=== PATIENT | male | born 1950 | race Caucasian/White ===

== ENCOUNTER 2016-10-08 21:12 | Emergency (ER) | payer MEDICARE, BC ==
[2016-10-08] MEDS ORDERED: BENADRYL 50 MG/ML IV ONE (21:29)
[2016-10-08] MEDS ORDERED: Hydromorphone 1 mg/ml Ampule IV ONE (21:29)
[2016-10-08] MEDS ORDERED: Sodium Chloride 0.9% 1000 ML 1,000 ML IV SCH (21:30)
[2016-10-08] MEDS ORDERED: Sodium Chloride 0.9% 1000 ML 1,000 ML ONE (21:32)
[2016-10-08] MEDS ORDERED: BENADRYL 50 MG/ML ONE (21:32)
[2016-10-08] MEDS ORDERED: Hydromorphone 1 mg/ml Ampule ONE (21:32)
--- NOTE | 2016-10-08 21:35 | ERPHSYRPT ---
- History of Present Illness Time Seen by Provider: 10/08/16 21:15 Source: patient Patient Subjective Stated Complaint: patient stasted he began having pain in left side that got so bad he started thorwing up Triage Nursing Assessment: pt alert and oriented x3, ambulates well gait is steady, skin cool, dry, and pale, lung sounds clear pupils perrla 2, left side tender to palpation, bowel souinds present on right side, hypoactive on left side, pulses equal bilateral radius. Physician History: CC: left flank pain Hx: 66 y/o patient of Dr Stephen Jamil. He has remote hx of kidney stone. He had sudden left flank pain starting at 6PM, severe and sharp in nature. Some associated nausea. No fever, chills, hematuria. No chest pain. Timing/Duration: today, constant Severity: severe Associated Symptoms: nausea, abdominal pain (left sided), No vomiting Allergies/Adverse Reactions: acetaminophen [From Vicodin] Allergy (Verified 10/08/16 21:32) hydrocodone [From Vicodin] Allergy (Verified 10/08/16 21:32) meperidine [From Demerol] Allergy (Verified 10/08/16 21:32) Home Medications: Hydrochlorothiazide 12.5 mg PO HS 10/08/16 [History] Lisinopril 10 mg [Zestril 10 MG] 10 mg PO AC 10/08/16 [History] Metoprolol Tartrate 50 mg [Lopressor 50 MG] 50 mg PO BID 10/08/16 [History ] Hx Tetanus, Diphtheria Vaccination/Date Given: No (unknown) Hx Influenza Vaccination/Date Given: No Hx Pneumococcal Vaccination/Date Given: Yes Immunizations Up to Date: No (unknown) - Review of Systems Constitutional: Weakness, No Fever, No Chills Eyes: No Symptoms Ears, Nose, & Throat: No Symptoms Respiratory: No Cough, No Dyspnea Cardiac: No Chest Pain Abdominal/Gastrointestinal: Abdominal Pain, Nausea, No Vomiting, No Diarrhea Genitourinary Symptoms: Flank Pain (left), No Dysuria, No Hematuria Musculoskeletal: Back Pain (left) Skin: No Rash Neurological: No Headache All Other Systems: Reviewed and Negative - Past Medical History Pertinent Past Medical History: Yes Cardiac History: Hypertension History: Other - Past Surgical History Past Surgical History: Yes Gastrointestinal: Hernia Repair Other Surgical History: left knee replacement last fall - Social History Smoking Status: Never smoker Drug Use: none - Nursing Vital Signs Nursing Vital Signs: Initial Vital Signs Temperature 98.7 F 10/08/16 21:13 Pulse Rate 63 10/08/16 21:13 Respiratory Rate 18 10/08/16 21:13 Blood Pressure 185/106 10/08/16 21:13 O2 Sat by Pulse Oximetry 98 10/08/16 21:13 Pain Scale Pain Intensity 0 - Physical Exam General Appearance: alert Eye Exam: PERRL/EOMI Ears, Nose, Throat Exam: normal ENT inspection, moist mucous membranes Neck Exam: normal inspection, non-tender, supple Respiratory Exam: normal breath sounds, lungs clear Cardiovascular Exam: regular rate/rhythm, No pulse deficit Gastrointestinal/Abdomen Exam: soft, tenderness (left), No distention, No mass Male Genitalia Exam: normal genitalia, No hernia, No testicular tenderness Back Exam: normal inspection, CVA tenderness (left) Extremity Exam: normal inspection, normal range of motion Neurologic Exam: alert, oriented x 3, cooperative, sensation nml, No motor deficits Skin Exam: warm, dry, No rash SpO2 Interpretation: normal SpO2: 98 Oxygen Delivery: Room Air - Course Nursing assessment & vital signs reviewed: Yes EKG Interpreted by Me: RATE (60), Sinus Rhythm, NORMAL AXIS, NORMAL INTERVALS ( QTc 440), NORMAL QRS, NORMAL ST-T - CT Exams abd/pelvis CT Interpretation: Tele-radiologist Report (prox ureteral stone, enlarged prostate) Ordered Tests: Active Orders 24 hr Category Date Time Status Clean Catch Urine Specimen STAT Care 10/08/16 21:29 Active EKG-ER Only STAT Care 10/08/16 21:29 Active IV Insertion STAT Care 10/08/16 21:29 Active ABDOMEN AND PELVIS W/0 CONTRAS [CT] Stat Exams 10/08/16 21:29 Taken CBC W DIFF Stat Lab 10/08/16 21:37 Completed CMP Stat Lab 10/08/16 21:37 Completed CULTURE,URINE Stat Lab 10/08/16 21:37 Received Lactic Acid Stat Lab 10/08/16 21:40 Completed UA W/ MICROSCOPIC Stat Lab 10/08/16 21:37 Completed Medication Summary Generic Name Dose Route Start Last Admin Trade Name Freq PRN Reason Stop Dose Admin Sodium Chloride 1,000 mls @ 100 mls/hr 10/08/16 21:30 10/08/16 21:35 Sodium Chloride 0.9% 1000 Ml IV 11/07/16 21:29 100 mls/hr .Q10H MIGUEL Administration Tramadol HCl 50 mg 10/08/16 22:40 Ultram 50 Mg PO 10/08/16 22:41 STAT ONE Discontinued Medications Generic Name Dose Route Start Last Admin Trade Name Julis PRN Reason Stop Dose Admin Diphenhydramine HCl 25 mg 10/08/16 21:29 10/08/16 21:35 Benadryl 50 Mg/Ml IV 10/08/16 21:30 25 mg STAT ONE Administration Diphenhydramine HCl Confirm 10/08/16 21:32 Benadryl 50 Mg/Ml Administered 10/08/16 21:33 Dose 50 mg .ROUTE .STK-MED ONE Hydromorphone HCl 1 mg 10/08/16 21:29 10/08/16 21:34 Hydromorphone 1 Mg/Ml Ampule IV 10/08/16 21:30 1 mg STAT ONE Administration Hydromorphone HCl Confirm 10/08/16 21:32 Hydromorphone 1 Mg/Ml Ampule Administered 10/08/16 21:33 Dose 1 mg .ROUTE .STK-MED ONE Lab/Rad Data: Laboratory Result Diagrams 10/08/16 21:37 10/08/16 21:37 Laboratory Results 10/08/16 10/08/16 10/08/16 Range/Units 21:40 21:37 21:37 WBC 10.9 H (4.0-10.5) K/mm3 RBC 4.72 (4.1-5.6) M/mm3 Hgb 14.4 (12.5-18.0) gm/dl Hct 43.1 (42-50) % MCV 91.3 (78-100) fl MCH 30.5 (26-32) pg MCHC 33.4 (32-36) g/dl RDW 13.8 (11.5-14.0) % Plt Count 179 (150-450) K/mm3 MPV 9.4 (6-9.5) fl Gran % 67.6 H (36.0-66.0) % Lymphocytes % 22.6 L (24.0-44.0) % Monocytes % 8.2 (0.0-12.0) % Eosinophils % 1.2 (0.00-5.0) % Basophils % 0.4 (0.0-0.4) % Basophils # 0.04 (0-0.4) Sodium 144 (136-145) mEq/L Potassium 3.7 (3.5-5.1) mEq/L Chloride 105 (98-107) mEq/L Carbon Dioxide 29.4 (21-32) mEq/L Anion Gap 13.0 (5-15) MEQ/L BUN 15 (9-20) mg/dL Creatinine 1.27 (0.55-1.30) mg/dl Estimated GFR > 60 ML/MIN Glucose 124 H (70-110) MG/DL Lactic Acid 1.6 (0.4-2.0) Calcium 8.8 (8.5-10.1) mg/dL Total Bilirubin 0.50 (0.2-1.0) mg/dL AST 29 (15-37) U/L ALT 36 (12-78) U/L Alkaline Phosphatase 84 (46-116) U/L Serum Total Protein 7.7 (6.4-8.2) gm/dL Albumin 4.0 (3.4-5.0) g/dL Ur Collection Type Urine Color (YELLOW) Urine Appearance (CLEAR) Urine pH (5-6) Ur Specific [place] (1.005-1.025) Urine Protein (Negative) Urine Ketones (NEGATIVE) Urine Blood (0-5) Jc/ul Urine Nitrite (NEGATIVE) Urine Bilirubin (NEGATIVE) Urine Urobilinogen (0-1) mg/dL Ur Leukocyte Esterase (NEGATIVE) Urine Microscopic RBC (0-2) /HPF Urine Microscopic WBC (0-5) /HPF Ur Epithelial Cells (FEW) /HPF Calcium Oxalate Crystal (NEGATIVE) /HPF Urine Bacteria (NEGATIVE) /HPF Urine Mucus (NEGATIVE) /HPF Urine Glucose (NEGATIVE) mg/dL Specimen Received 10/08/16 Range/Units 21:37 WBC (4.0-10.5) K/mm3 RBC (4.1-5.6) M/mm3 Hgb (12.5-18.0) gm/dl Hct (42-50) % MCV (78-100) fl MCH (26-32) pg MCHC (32-36) g/dl RDW (11.5-14.0) % Plt Count (150-450) K/mm3 MPV (6-9.5) fl Gran % (36.0-66.0) % Lymphocytes % (24.0-44.0) % Monocytes % (0.0-12.0) % Eosinophils % (0.00-5.0) % Basophils % (0.0-0.4) % Basophils # (0-0.4) Sodium (136-145) mEq/L Potassium (3.5-5.1) mEq/L Chloride (98-107) mEq/L Carbon Dioxide (21-32) mEq/L Anion Gap (5-15) MEQ/L BUN (9-20) mg/dL Creatinine (0.55-1.30) mg/dl Estimated GFR ML/MIN Glucose (70-110) MG/DL Lactic Acid (0.4-2.0) Calcium (8.5-10.1) mg/dL Total Bilirubin (0.2-1.0) mg/dL AST (15-37) U/L ALT (12-78) U/L Alkaline Phosphatase (46-116) U/L Serum Total Protein (6.4-8.2) gm/dL Albumin (3.4-5.0) g/dL Ur Collection Type CLEAN CATCH Urine Color YELLOW (YELLOW) Urine Appearance CLEAR (CLEAR) Urine pH 6.0 (5-6) Ur Specific [place] 1.020 (1.005-1.025) Urine Protein TRACE (Negative) Urine Ketones NEGATIVE (NEGATIVE) Urine Blood 250 (0-5) Jc/ul Urine Nitrite NEGATIVE (NEGATIVE) Urine Bilirubin NEGATIVE (NEGATIVE) Urine Urobilinogen NORMAL (0-1) mg/dL Ur Leukocyte Esterase TRACE (NEGATIVE) Urine Microscopic RBC 5-10 (0-2) /HPF Urine Microscopic WBC 2-5 (0-5) /HPF Ur Epithelial Cells FEW (FEW) /HPF Calcium Oxalate Crystal 0-2 (NEGATIVE) /HPF Urine Bacteria FEW (NEGATIVE) /HPF Urine Mucus MODERATE (NEGATIVE) /HPF Urine Glucose NEGATIVE (NEGATIVE) mg/dL Specimen Received 10/08/16 2140 - Progress Progress Note: 10/08/16 21:[address] to evaluate for renal stone disease. 10/08/16 22:41 Pain markedly improved. Discussed kidney stone instructions. He is allergic to percocet and vicodin. Did well with dilaudid. Will try ultram at home. Also advised motrin. Counseled pt/family regarding: lab results, diagnosis, need for follow-up, rad results - Departure Time of Disposition: 22:42 Departure Disposition: Home Clinical Impression: Renal colic on left side, Ureteral calculus, left Condition: Stable Critical Care Time: No Referrals: STEPHEN JAMIL MD [Primary Care Provider] - Instructions: Kidney Stones Additional Instructions: Return to ER for fever, recurrent vomiting, or uncontrolled pain. Take ibuprofen 600mg every 8 hours for pain. Rx tramadol - no driving or operating machinery. Strain urine for stone. Follow up with Dr Jamil in 1-2 days. Prescriptions: Ibuprofen 600 mg PO Q6H PRN PRN #20 tablet PRN Reason: Pain Tramadol HCl [Ultram] 1 tab PO Q6H PRN PRN #15 tablet PRN Reason: pain
[2016-10-08 21:43] LABS: BASOPHIL % 0.4 % (0.0-0.4); Eosinophil % 1.2 % (0.00-5.0); Granulocytes % 67.6 % (36.0-66.0); Lymphocytes % 22.6 % (24.0-44.0); Mean Cell Volume 91.3 fl (78-100); Mean Corpuscular Hemoglobin 30.5 pg (26-32); Mean Platelet Volume 9.4 fl (6-9.5); Monocytes % 8.2 % (0.0-12.0); Platelet Count 179 K/mm3 (150-450); Red Blood Count 4.72 M/mm3 (4.1-5.6); Red Cell Distribution Width 13.8 % (11.5-14.0); White Blood Count 10.9 K/mm3 (4.0-10.5)
[2016-10-08 22:03] LABS: Bacteria FEW /HPF (NEGATIVE); Bilirubin NEGATIVE (NEGATIVE); Blood 250 Ery/ul (0-5); CALCIUM OXALATE CRYSTALS 0-2 /HPF (NEGATIVE); COMPLETE URINE MICROSCOPIC? YES; Collection Type CLEAN CATCH; Epithelial Cells FEW /HPF (FEW); Glucose NEGATIVE (NEGATIVE); Leukocyte Esterase TRACE (NEGATIVE); Mucus MODERATE /HPF (NEGATIVE)
[2016-10-08 22:04] LABS: ALKALINE PHOSPHATASE 84 U/L (46-116); BLOOD UREA NITROGEN 15 mg/dL (9-20); CHLORIDE 105 mEq/L (98-107); Carbon Dioxide 29.4 mEq/L (21-32); Glucose 124 MG/DL (70-110); Potassium 3.7 mEq/L (3.5-5.1); SGOT/AST 29 U/L (15-37); SGPT/ALT 36 U/L (12-78); SODIUM 144 mEq/L (136-145); Total Protein 7.7 gm/dL (6.4-8.2)
[2016-10-08 22:37] LABS: ADD URINE CULTURE? YES (NO)
[2016-10-08] MEDS ORDERED: TORAdol 30 mg Injection IV ONE (22:41)
[2016-10-08] MEDS ORDERED: ULTRAM 50 MG ONE (22:45)
[2016-10-08] MEDS ORDERED: TORAdol 30 mg Injection ONE (22:45)
[2016-10-08] MEDS: ULTRAM 50 MG PO ONE ×2 (22:48→22:49)
[2016-10-08 23:13] VITALS: BP 140/83; PULSE 68; O2SAT 92
--- NOTE | 2016-10-09 09:00 | XRAY ---
Indication: Left flank pain and nausea. History of renal stone. Multiple contiguous axial images obtained through the abdomen and pelvis without contrast as ordered. Comparison: None Lung bases demonstrate moderate bibasilar dependent atelectasis. Heart is not enlarged. There is a 4-5 mm proximal left ureter calculus, approximately L3 level, with also moderate hydronephrosis and perinephric stranding/fluid consistent with high-grade obstructive uropathy. Right kidney demonstrates a 2-3 mm nonobstructing right renal calculus and a few cysts, largest medial pole appearing exophytic measuring 2.6 cm. In the right upper renal cortex, there is a faint 7 mm curvilinear calcification that warrants additional imaging. Enlarged/nodular prostate gland with benign chunky calcifications slightly impresses on the base of the urinary bladder. Noncontrasted stomach and bowel loops appear nonobstructed. Suture material in the expected region of the appendix. A few calcified splenic granulomas. Remaining liver, gallbladder, pancreas, spleen, adrenal glands, kidneys, ureters, and bladder appear unremarkable for noncontrast exam. Mild aortoiliac calcifications without AAA. Osseous structures intact with mild spinal degenerative changes greatest at the lumbosacral junction. Impression: 1. 4-5 mm proximal left ureter calculus producing high-grade obstruction as detailed. 2. Right kidney demonstrates cysts and nonobstructing micro-calculus. Also faint curvilinear calcification in the upper renal cortex for which a mass cannot be completely excluded. CT or MRI with contrast may yield further information. 3. Incidental enlarged/nodular prostate gland with benign chunky calcifications. Comment: Preliminary interpretation was made by [facility]. Right renal findings not reported and not felt to be critical. CT DI 22.73
== END 2016-10-08 23:22 | disposition home or self-care (01) ==
LOC: ED 21:12
DX: N23 Unspecified renal colic (principal); N20.1 Calculus of ureter
CPT/HCPCS: 36000; 36415; 74176; 80053; 81000; 83605; 85025; 87086; 93005; 96360; 96361; 96374; 96375; 99284; 99285; J1170; J1200; J1885; A9270-GY

== ENCOUNTER 2016-11-09 16:55 | Emergency (ER) | payer MEDICARE, BC ==
[2016-11-09] MEDS ORDERED: Hydromorphone 1 mg/ml Ampule IV ONE (17:42)
[2016-11-09] MEDS ORDERED: Sodium Chloride 0.9% 1000 ML 1,000 ML IV SCH (17:45)
[2016-11-09] MEDS ORDERED: Sodium Chloride 0.9% 1000 ML 1,000 ML ONE (17:48)
[2016-11-09] MEDS ORDERED: Hydromorphone 1 mg/ml Ampule ONE (17:48)
--- NOTE | 2016-11-09 17:49 | ERPHSYRPT ---
- History of Present Illness Time Seen by Provider: 11/09/16 17:37 Source: patient Patient Subjective Stated Complaint: PT STATES HE BEGAN HAVING LEFT GROIN PAIN TODAY. STATES PAIN STARTED IN BACK. HX OF KIDNEY STONES. LAST ONE 4 WEEKS AGO. Triage Nursing Assessment: PT PINK, WARM, DRY. ABDOMEN SOFT. NON TENDER. PT AFEBRILE. Physician History: CC: left flank pain Hx: 66 y/o patient of dr Owens. He was here with left prox ureteral stone one month ago. He had high grade obstr. He felt better so did not have follow up. 2 weeks ago he had dysuria and some trouble with urination. Now has return of pain going to the left groin. No fever or chills. Pain moderate to severe. No vomiting. Allergies/Adverse Reactions: acetaminophen [From Vicodin] Allergy (Verified 11/09/16 17:34) hydrocodone [From Vicodin] Allergy (Verified 11/09/16 17:34) meperidine [From Demerol] Allergy (Verified 11/09/16 17:34) Home Medications: Hydrochlorothiazide 12.5 mg PO HS 10/08/16 [History] Lisinopril 10 mg [Zestril 10 MG] 10 mg PO AC 10/08/16 [History] Metoprolol Tartrate 50 mg [Lopressor 50 MG] 50 mg PO BID 10/08/16 [History ] Hx Tetanus, Diphtheria Vaccination/Date Given: Yes (UP TO DATE) Hx Influenza Vaccination/Date Given: Yes Hx Pneumococcal Vaccination/Date Given: No Immunizations Up to Date: Yes - Past Medical History Pertinent Past Medical History: Yes Cardiac History: Hypertension History: Other Other Medical History: KIDNEY STONES - Past Surgical History Past Surgical History: Yes Gastrointestinal: Hernia Repair Musculoskeletal: Joint Replacement Other Surgical History: left knee replacement last fall - Social History Smoking Status: Never smoker Exposure to second hand smoke: No Drug Use: none Patient Lives Alone: No - Review of Systems Constitutional: Malaise, No Fever, No Chills Eyes: No Symptoms Ears, Nose, & Throat: No Symptoms Respiratory: No Cough, No Dyspnea Cardiac: No Chest Pain Abdominal/Gastrointestinal: No Nausea, No Vomiting Genitourinary Symptoms: Dysuria, Flank Pain (to groin) Musculoskeletal: No Back Pain, No Neck Pain Skin: No Rash Neurological: No Headache All Other Systems: Reviewed and Negative - Nursing Vital Signs Nursing Vital Signs: Initial Vital Signs Temperature 98.4 F 11/09/16 17:26 Pulse Rate 55 L 11/09/16 17:26 Respiratory Rate 18 11/09/16 17:26 O2 Sat by Pulse Oximetry 96 11/09/16 17:26 Pain Scale Pain Intensity [Left Abdomen] 8 Pain Intensity 2 - Physical Exam General Appearance: alert Eye Exam: PERRL/EOMI Ears, Nose, Throat Exam: normal ENT inspection, moist mucous membranes Neck Exam: normal inspection, non-tender, supple Respiratory Exam: normal breath sounds, lungs clear Cardiovascular Exam: regular rate/rhythm Gastrointestinal/Abdomen Exam: soft, No tenderness, No distention Male Genital Exam: normal genitalia, No epididymal tenderness Back Exam: normal inspection, No CVA tenderness Neurologic Exam: alert, oriented x 3, cooperative, sensation nml, No motor deficits Skin Exam: warm, dry, No rash SpO2 Interpretation: normal SpO2: 96 Oxygen Delivery: Room Air - Course Nursing assessment & vital signs reviewed: Yes - CT Exams abd/pelvis CT Interpretation: Tele-radiologist Report (5.4cc distal left ureteral stone with trace left hydro) Ordered Tests: Active Orders 24 hr Category Date Time Status Clean Catch Urine Specimen STAT Care 11/09/16 17:42 Active IV Insertion STAT Care 11/09/16 17:42 Active ABDOMEN AND PELVIS W/0 CONTRAS [CT] Stat Exams 11/09/16 17:43 Taken BMP Stat Lab 11/09/16 18:45 Completed CBC W DIFF Stat Lab 11/09/16 17:53 Completed CULTURE,URINE Stat Lab 11/09/16 17:43 Ordered CULTURE,URINE Stat Lab 11/09/16 17:43 Ordered UA W/ MICROSCOPIC Stat Lab 11/09/16 17:43 Completed Medication Summary Generic Name Dose Route Start Last Admin Trade Name Freq PRN Reason Stop Dose Admin Sodium Chloride 1,000 mls @ 100 mls/hr 11/09/16 17:45 11/09/16 17:49 Sodium Chloride 0.9% 1000 Ml IV 12/09/16 17:44 100 mls/hr .Q10H MIGUEL Administration Discontinued Medications Generic Name Dose Route Start Last Admin Trade Name Freq PRN Reason Stop Dose Admin Hydromorphone HCl 1 mg 11/09/16 17:42 08/25/17 17:49 Hydromorphone 1 Mg/Ml Ampule IV 11/09/16 17:43 1 mg STAT ONE Administration Hydromorphone HCl Confirm 11/09/16 17:48 Hydromorphone 1 Mg/Ml Ampule Administered 11/09/16 17:49 Dose 1 mg .ROUTE .STK-MED ONE Lab/Rad Data: Laboratory Result Diagrams 11/09/16 17:53 11/09/16 18:45 Laboratory Results 11/09/16 11/09/16 11/09/16 Range/Units 18:45 17:53 17:43 WBC 11.2 H (4.0-10.5) K/mm3 RBC 4.79 (4.1-5.6) M/mm3 Hgb 14.4 (12.5-18.0) gm/dl Hct 43.5 (42-50) % MCV 90.8 (78-100) fl MCH 30.1 (26-32) pg MCHC 33.1 (32-36) g/dl RDW 13.6 (11.5-14.0) % Plt Count 177 (150-450) K/mm3 MPV 9.9 H (6-9.5) fl Gran % 73.5 H (36.0-66.0) % Lymphocytes % 18.1 L (24.0-44.0) % Monocytes % 7.1 (0.0-12.0) % Eosinophils % 0.9 (0.00-5.0) % Basophils % 0.4 (0.0-0.4) % Basophils # 0.04 (0-0.4) Sodium 142 (136-145) mEq/L Potassium 3.8 (3.5-5.1) mEq/L Chloride 106 (98-107) mEq/L Carbon Dioxide 27.2 (21-32) mEq/L Anion Gap 12.4 (5-15) MEQ/L BUN 14 (9-20) mg/dL Creatinine 1.13 (0.55-1.30) mg/dl Estimated GFR > 60 ML/MIN Glucose 121 H (70-110) MG/DL Calcium 8.7 (8.5-10.1) mg/dL Ur Collection Type CCMS Urine Color YELLOW (YELLOW) Urine Appearance CLEAR (CLEAR) Urine pH 5.0 (5-6) Ur Specific [place] 1.020 (1.005-1.025) Urine Protein NEGATIVE (Negative) Urine Ketones NEGATIVE (NEGATIVE) Urine Blood 50 (0-5) Jc/ul Urine Nitrite NEGATIVE (NEGATIVE) Urine Bilirubin NEGATIVE (NEGATIVE) Urine Urobilinogen NORMAL (0-1) mg/dL Ur Leukocyte Esterase NEGATIVE (NEGATIVE) Urine Microscopic RBC 5-10 (0-2) /HPF Urine Microscopic WBC 0-2 (0-5) /HPF Urine Mucus SLIGHT (NEGATIVE) /HPF Urine Glucose NEGATIVE (NEGATIVE) mg/dL Specimen Received 11-09-16 1823 - Progress Progress Note: 11/09/16 17:48 He has not had follow up of the high grade left ureteral obstruction so will get CT to evaluate stone disease. 11/09/16 19:13 Pain better. He will follow up with urology next week. He has tramadol at home for pain. Counseled pt/family regarding: lab results, diagnosis, need for follow-up, rad results - Departure Time of Disposition: 19:14 Departure Disposition: Home Clinical Impression: Left ureteral stone, Renal colic on left side Condition: Stable Critical Care Time: No Referrals: STEPHEN CERDA MD [Primary Care Provider] - NOEMI DIETRICH [COURTESY STAFF] - Instructions: Kidney Stones Additional Instructions: No driving today or while taking ultram. Strain urine and collect any stone. Follow up next week with urology. Return for fever, vomiting, uncontrolled pain or concerns. Take xray CD with you to urology.
[2016-11-09 18:00] LABS: BASOPHIL % 0.4 % (0.0-0.4); Eosinophil % 0.9 % (0.00-5.0); Granulocytes % 73.5 % (36.0-66.0); Lymphocytes % 18.1 % (24.0-44.0); Mean Cell Volume 90.8 fl (78-100); Mean Corpuscular Hemoglobin 30.1 pg (26-32); Mean Platelet Volume 9.9 fl (6-9.5); Monocytes % 7.1 % (0.0-12.0); Platelet Count 177 K/mm3 (150-450); Red Blood Count 4.79 M/mm3 (4.1-5.6); Red Cell Distribution Width 13.6 % (11.5-14.0); White Blood Count 11.2 K/mm3 (4.0-10.5)
[2016-11-09 18:23] LABS: ADD URINE CULTURE? YES (NO); Bilirubin NEGATIVE (NEGATIVE); Blood 50 Ery/ul (0-5); COMPLETE URINE MICROSCOPIC? YES; Collection Type CCMS; Glucose NEGATIVE (NEGATIVE); Leukocyte Esterase NEGATIVE (NEGATIVE); Mucus SLIGHT /HPF (NEGATIVE); WBC 0-2 /HPF (0-5)
[2016-11-09 19:08] LABS: ANION GAP 12.4 MEQ/L (5-15); BLOOD UREA NITROGEN 14 mg/dL (9-20); CHLORIDE 106 mEq/L (98-107); Carbon Dioxide 27.2 mEq/L (21-32); Glucose 121 MG/DL (70-110); Potassium 3.8 mEq/L (3.5-5.1); SODIUM 142 mEq/L (136-145)
[2016-11-09 20:05] VITALS: BP 159/92; PULSE 68; O2SAT 95
--- NOTE | 2016-11-09 22:57 | XRAY ---
Indication: Left flank pain. History of renal stone. Multiple contiguous axial images obtained through the abdomen and pelvis without contrast using renal stone protocol. Comparison: October 08, 2016. Lung bases again demonstrate mild bibasilar dependent atelectasis. Heart is not enlarged. Previous 4-5 mm proximal left ureter calculus has propagated into the distal ureter now approximately 1-2 cm proximal to the UVJ. Proximal ureter is now prominent up to 8 mm. There remains moderate hydronephrosis and perinephric stranding/fluid. Stable nonobstructing right renal microcalculus, faint cortical calcifications, and a few cysts. Stable enlarged/nodular prostate gland with benign chunky calcifications slightly impresses on the base of the urinary bladder. Noncontrasted stomach and bowel loops appear nonobstructed. Previous appendectomy. Again a few calcified splenic granulomas. Remaining liver, gallbladder, pancreas, spleen, adrenal glands, kidneys, ureters, and bladder appear unremarkable for noncontrast exam. There remains mild aortoiliac calcifications without AAA. Impression: 1. Previous left ureter calculus has propagated more distally with continued high-grade obstruction as detailed. 2. Stable right kidney nonobstructing microcalculus, faint cortical calcifications, and cysts. 3. Stable enlarged/nodular prostate gland with benign chunky calcifications. Comment: Preliminary interpretation was made by [facility]. No discrepancy. CTDI 22.83
== END 2016-11-09 20:05 | disposition home or self-care (01) ==
LOC: ED 16:55
DX: N20.1 Calculus of ureter (principal); N23 Unspecified renal colic; R10.9 Unspecified abdominal pain; I10 Essential (primary) hypertension
CPT/HCPCS: 36000; 36415; 74176; 80048; 81000; 85025; 87086; 96360; 96361; 96374; 99284; J1170